=== PATIENT | male | born 1955 | race Hispanic/Latino ===

== ENCOUNTER 2017-08-10 05:06 | Emergency (ER) | payer BC, MEDICAID, OTHER ==
[2017-08-10 06:22] LABS: BASOPHILS % (AUTO) 0.6 % (0.0-5.0); EOSINOPHILS % (AUTO) 9.7 % (0.0-8.0); HEMATOCRIT 38.3 % (42-54); LYMPHOCYTES % (AUTO) 38.2 % (21.0-51.0); MEAN CORPUSCULAR HEMOGLOBIN 33.7 pg (27.0-33.0); MEAN CORPUSCULAR HGB CONC 35.5 g/dL (32.0-36.0); MEAN CORPUSCULAR VOLUME 94.9 fL (79-99); NEUTROPHILS % (AUTO) 47.5 % (40.0-77.0); PLATELET COUNT (AUTO) 199 K/uL (130-400); RED BLOOD CELL COUNT(AUTO) 4.04 MIL/uL (4.50-6.20); RED CELL DISTRIBUTION WIDTH 12.8 % (11.0-15.5); WHITE BLOOD COUNT (AUTO) 7.5 K/uL (4.8-10.8)
[2017-08-10 06:23] LABS: CREATININE 0.9 mg/dL (0.5-1.5); POTASSIUM 3.9 mmol/L (3.5-5.1)
[2017-08-10 06:39] LABS: INR 0.96 (0.85-1.15); PARTIAL THROMBOPLASTIN TIME 27.8 SEC (26.3-35.5); PROTHROMBIN TIME 10.1 SEC (9.6-11.6)
[2017-08-10 06:46] LABS: BILIRUBIN,TOTAL 0.3 mg/dL (0.2-1.0)
[2017-08-10 06:56] LABS: ALBUMIN 3.1 g/dL (3.5-5.0)
[2017-08-10 06:57] LABS: CREATINE KINASE MB 4.3 ng/mL (0.5-3.6); TOTAL PROTEIN, SERUM 5.4 g/dL (6.0-8.3)
== END 2017-08-10 08:06 | disposition home or self-care (01) ==
LOC: EDH 05:06
DX: K29.70 Gastritis, unspecified, without bleeding (principal); K21.9 Gastro-esophageal reflux disease without esophagitis; F10.129 Alcohol abuse with intoxication, unspecified; R07.89 Other chest pain; E11.9 Type 2 diabetes mellitus without complications; Z91.041 Radiographic dye allergy status; Y90.9 Presence of alcohol in blood, level not specified
CPT/HCPCS: 36415; 71045; 80053; 82550; 82553; 83605; 83690; 83874; 83880; 84484 ×2; 85025; 85610; 85730; 93005; 94761; 99285; G0480

== ENCOUNTER 2018-04-30 08:20 | Observation (INO) | payer MEDICAID ==
[~2018-04-30] VITALS: Ht 177.8 cm; Wt 96.2 kg
[2018-04-30] MEDS ORDERED: DIPHENOXYLATE HCL/ATROPINE 2.5/0.025 MG TAB PO ONE (08:53)
[2018-04-30] MEDS ORDERED: ONDANSETRON HCL 4 MG/2 ML VIAL ONE (08:53)
[2018-04-30] MEDS ORDERED: SODIUM CHLORIDE 0.9% 1000ML 1,000 ML IV ONE ×2 (08:53→11:08)
[2018-04-30 09:15] LABS: BASOPHILS % (AUTO) 0.1 % (0.0-5.0); HEMATOCRIT 40.9 % (42-54); LYMPHOCYTES % (AUTO) 2.1 % (21.0-51.0); MEAN CORPUSCULAR HEMOGLOBIN 33.3 pg (27.0-33.0); MEAN CORPUSCULAR HGB CONC 34.8 g/dL (32.0-36.0); MEAN CORPUSCULAR VOLUME 95.7 fL (79-99); MONOCYTES % (AUTO) 2.4 % (3.0-13.0); NEUTROPHILS % (AUTO) 95.4 % (40.0-77.0); PLATELET COUNT (AUTO) 126 K/uL (130-400); RED BLOOD CELL COUNT(AUTO) 4.27 MIL/uL (4.50-6.20); RED CELL DISTRIBUTION WIDTH 13.3 % (11.0-15.5); WHITE BLOOD COUNT (AUTO) 10.9 K/uL (4.8-10.8)
[2018-04-30 09:23] LABS: APPEARANCE,URINE Clear (CLEAR); BILIRUBIN,URINE Negative (NEGATIVE); COLOR,URINE Dark Yellow (YELLOW); GLUCOSE, URINE (UA) 250 mg/dL (NEGATIVE); KETONES,URINE 15 mg/dL (NEGATIVE); LEUKOCYTE ESTERASE ,URINE Trace (NEGATIVE); NITRATE,URINE Negative (NEGATIVE); OCCULT BLOOD,URINE Negative (NEGATIVE); PH,URINE 7.5 (5.0-8.0); PROTEIN,URINE POS 2+ (NEGATIVE)
[2018-04-30 09:31] LABS: INR 1.09 (0.85-1.15); PARTIAL THROMBOPLASTIN TIME 44.1 SEC (26.3-35.5); PROTHROMBIN TIME 11.4 SEC (9.6-11.6)
[2018-04-30 09:32] LABS: CARBON DIOXIDE 30 mmol/L (21-32); CHLORIDE 95 mmol/L (101-111); CREATININE 1.6 mg/dL (0.5-1.5); GLOMERULAR FILTR. RATE CALC 47 mL/min (>60); GLUCOSE,RANDOM 294 mg/dL (70-105); POTASSIUM 4.5 mmol/L (3.5-5.1); SODIUM SERUM 131 mmol/L (136-145); UREA NITROGEN, BLOOD 18 mg/dL (7-18)
[2018-04-30 09:33] LABS: BACTERIA,URINE Few /HPF (None Seen); RBC,URINE 0-1 /HPF (0-1); SQUAMOUS EPITHELIAL CELL,UR 0-2 /HPF (0-2); WBC,URINE 0-1 /HPF (0-1)
[2018-04-30] MEDS ORDERED: IBUPROFEN 600 MG TABLET ONE (09:34)
[2018-04-30 09:45] LABS: ALANINE AMINOTRANSFERASE 34 U/L (12-78); ALBUMIN 3.6 g/dL (3.5-5.0); ASPARTATE AMINOTRANSFERASE 26 U/L (10-37); BILIRUBIN,TOTAL 1.4 mg/dL (0.2-1.0); CREATINE KINASE, TOTAL 98 U/L (21-232); MYOGLOBIN 110 ng/mL (10-92); TOTAL PROTEIN, SERUM 8.1 g/dL (6.0-8.3); TROPONIN I < 0.04 ng/mL (0.00-0.06)
[2018-04-30] MEDS ORDERED: LEVOFLOXACIN 750 MG/D5W 150 ML 150 ML ONE (09:47)
[2018-04-30] MEDS ORDERED: METRONIDAZOLE 500MG/100ML BAG 100 ML ONE (11:08)
[2018-04-30] MEDS: SODIUM CHLORIDE 0.9% 1000ML 1,000 ML IV SCH ×2 (12:21→22:02)
[2018-04-30] MEDS: LEVOFLOXACIN 500 MG/D5W 100 ML 100 ML IV SCH (12:30)
[2018-04-30] MEDS ORDERED: ACETAMINOPHEN 650 MG SUPPOSITORY RC PRN (12:30)
[2018-04-30] MEDS ORDERED: ONDANSETRON HCL MDV 20ML 2 MG/ML VIAL IVP PRN (12:30)
[2018-04-30] MEDS: METRONIDAZOLE 500MG/100ML BAG 100 ML IV SCH ×2 (12:30→22:02)
[2018-04-30 17:55] VITALS: BP 144/82
[2018-04-30] MEDS ORDERED: METF-446 PO (18:33)
[2018-04-30] MEDS ORDERED: CETI10CA5 PO (18:33)
[2018-04-30 19:50] VITALS: BP 141/69
[2018-04-30] MEDS: FAMOTIDINE/PF 20 MG/2 ML VIAL IV SCH (22:03)
[2018-04-30 23:20] VITALS: BP 139/77
[2018-05-01] MEDS ORDERED: GLUCAGON 1MG KIT 1 MG ML IM PRN (01:00)
[2018-05-01] MEDS ORDERED: DEXTROSE 50%-WATER 50 ML DISP.SYRIN IV PRN (01:00)
[2018-05-01 03:40] VITALS: BP 136/77
[2018-05-01] MEDS: METRONIDAZOLE 500MG/100ML BAG 100 ML IV SCH ×2 (05:20→12:06)
[2018-05-01 05:29] LABS: HEMATOCRIT 35.1 % (42-54); MEAN CORPUSCULAR HEMOGLOBIN 33.5 pg (27.0-33.0); MEAN CORPUSCULAR HGB CONC 35.2 g/dL (32.0-36.0); MEAN CORPUSCULAR VOLUME 95.4 fL (79-99); NUCLEATED RED BLOOD CELLS 0.1 % (0.0-0.19); PLATELET COUNT (AUTO) 137 K/uL (130-400); RED BLOOD CELL COUNT(AUTO) 3.68 MIL/uL (4.50-6.20); RED CELL DISTRIBUTION WIDTH 13.5 % (11.0-15.5); WHITE BLOOD COUNT (AUTO) 5.1 K/uL (4.8-10.8)
[2018-05-01 05:56] LABS: CREATININE 1.2 mg/dL (0.5-1.5); POTASSIUM 4.1 mmol/L (3.5-5.1)
[2018-05-01] MEDS: INSULIN HUMULIN R 100 UNIT/ML 3ML SQ SCH ×2 (06:00→11:42)
[2018-05-01 07:30] VITALS: BP 136/72
[2018-05-01] MEDS: FAMOTIDINE/PF 20 MG/2 ML VIAL IV SCH (08:41)
[2018-05-01] MEDS ORDERED: ENOXAPARIN SODIUM 40 MG/0.4 ML SYRINGE SQ SCH (09:00)
[2018-05-01 11:00] VITALS: BP 142/74
[2018-05-01] MEDS: LEVOFLOXACIN 500 MG/D5W 100 ML 100 ML IV SCH (13:21)
[2018-05-01 16:00] VITALS: BP 133/67
[2018-05-01] MEDS ORDERED: INSULIN HUMULIN R 100 UNIT/ML 3ML SQ SCH (16:30)
== END 2018-05-01 18:40 | disposition home or self-care (01) ==
LOC: EDH 08:20 → EDHIP 08:21 → 4CH 18:02
PROVIDERS: ADMIT Hospitalist; ATTEND Hospitalist
DX: K52.9 Noninfective gastroenteritis and colitis, unspecified (principal); A41.9 Sepsis, unspecified organism; E11.9 Type 2 diabetes mellitus without complications; E86.9 Volume depletion, unspecified; E87.1 Hypo-osmolality and hyponatremia
CPT/HCPCS: 36415 ×2; 71045; 80048; 80053; 81001; 82550; 82948 ×5; 83605 ×2; 83874; 84484; 85025; 85027; 85610; 85730; 87040 ×2; 87046; 87088; 87177; 87804 ×2; 93005; 96365; 96366; 96367; 96372; 96375; 96376; 99285; G0378 ×34; J1650; J1956 ×2; J2405; J3490 ×6; J7030 ×3; Q2035 ×2; Q2038

== ENCOUNTER 2021-02-03 01:32 | Observation (INO) | payer MEDICARE ==
[~2021-02-03] VITALS: Ht 208.3 cm; Wt 75.4 kg
[2021-02-03] VITALS (8 sets, daily range): BP systolic 143–176; BP diastolic 67–94
[~2021-02-03 01:32] MED LIST: CETI10CA5 PO; METF-446 PO
[2021-02-03 02:38] LABS: BASOPHILS % (AUTO) 0.1 % (0.0-5.0); EOSINOPHILS % (AUTO) 0.3 % (0.0-8.0); HEMATOCRIT 32.6 % (42-54); LYMPHOCYTES % (AUTO) 6.9 % (21.0-51.0); MEAN CORPUSCULAR HEMOGLOBIN 33.2 pg (27.0-33.0); MEAN CORPUSCULAR HGB CONC 35.9 g/dL (32.0-36.0); MEAN CORPUSCULAR VOLUME 92.6 fL (79-99); MONOCYTES % (AUTO) 3.8 % (3.0-13.0); NEUTROPHILS % (AUTO) 88.7 % (40.0-77.0); PLATELET COUNT (AUTO) 142 K/uL (130-400); RED BLOOD CELL COUNT(AUTO) 3.52 MIL/uL (4.50-6.20); RED CELL DISTRIBUTION WIDTH 13.2 % (11.0-15.5); WHITE BLOOD COUNT (AUTO) 11.1 K/uL (4.8-10.8)
[2021-02-03 02:43] LABS: INR 1.16 (0.85-1.15); PROTHROMBIN TIME 12.5 SEC (9.6-11.6)
[2021-02-03 02:45] LABS: PARTIAL THROMBOPLASTIN TIME 25.9 SEC (26.3-35.5)
[2021-02-03 02:46] LABS: ALBUMIN 3.7 g/dL (3.5-5.0); BILIRUBIN,TOTAL 0.7 mg/dL (0.2-1.0); POTASSIUM 3.7 mmol/L (3.5-5.1); TOTAL PROTEIN, SERUM 6.8 g/dL (6.0-8.3)
[2021-02-03] MEDS ORDERED: ONDANSETRON 4MG INJ ONE (03:17)
[2021-02-03] MEDS ORDERED: 0.9%NACL 1000ML 1,000 ML IV ONE (03:17)
[2021-02-03] MEDS ORDERED: PROCHLORPERAZINE 10MG/2ML INJ ONE (03:22)
[2021-02-03] MEDS ORDERED: OCTREOTIDE ACETATE 1,250 MCG in 0.9% NACL 250ML 250 ML IV STA (03:23)
[2021-02-03] MEDS ORDERED: ONDANSETRON 4MG INJ IVP ONE (03:30)
[2021-02-03] MEDS ORDERED: METOCLOPRAMIDE 10 MG/2 ML VIAL IVP ONE (03:30)
[2021-02-03] MEDS ORDERED: OCTREOTIDE ACETATE 100 MCG/ML AMP IV SCH (03:30)
[2021-02-03] MEDS ORDERED: 0.9%NACL 1000ML 500 ML IV ONE (03:30)
[2021-02-03] MEDS: PROCHLORPERAZINE 10MG/2ML INJ IV ONE ×2 (03:30→04:43)
[2021-02-03] MEDS ORDERED: PANTOPRAZOLE 40 MG/VIAL IV SCH (03:30)
[2021-02-03] MEDS: 0.9%NACL 1000ML 1,000 ML IV SCH ×4 (03:30→23:39)
[2021-02-03] MEDS ORDERED: 0.9%NACL 100ML 200 ML ONE (04:11)
[2021-02-03] MEDS: PANTOPRAZOLE 40MG INJ 80 MG in 0.9%NACL 100ML 100 ML IVP SCH ×2 (04:44→21:59)
[2021-02-03] MEDS ORDERED: LACTATED RINGERS 1000ML 1,000 ML IV ONE (05:00)
[2021-02-03] MEDS ORDERED: ONDANSETRON 4MG INJ IVP PRN (08:00)
[2021-02-03 08:07] LABS: BASOPHILS % (AUTO) 0.1 % (0.0-5.0); EOSINOPHILS % (AUTO) 1.8 % (0.0-8.0); HEMATOCRIT 30.1 % (42-54); LYMPHOCYTES % (AUTO) 6.8 % (21.0-51.0); MEAN CORPUSCULAR HEMOGLOBIN 32.7 pg (27.0-33.0); MEAN CORPUSCULAR HGB CONC 35.2 g/dL (32.0-36.0); MEAN CORPUSCULAR VOLUME 92.9 fL (79-99); MONOCYTES % (AUTO) 3.5 % (3.0-13.0); NEUTROPHILS % (AUTO) 87.5 % (40.0-77.0); PLATELET COUNT (AUTO) 131 K/uL (130-400); RED BLOOD CELL COUNT(AUTO) 3.24 MIL/uL (4.50-6.20); RED CELL DISTRIBUTION WIDTH 12.9 % (11.0-15.5)
[2021-02-03 08:14] LABS: CREATININE 0.9 mg/dL (0.5-1.5)
[2021-02-03 08:18] LABS: ALBUMIN 3.2 g/dL (3.5-5.0); BILIRUBIN,TOTAL 0.6 mg/dL (0.2-1.0); MAGNESIUM 1.3 mg/dL (1.80-2.40)
[2021-02-03 08:25] LABS: INR 1.2 (0.85-1.15); PROTHROMBIN TIME 12.9 SEC (9.6-11.6)
[2021-02-03 08:26] LABS: PARTIAL THROMBOPLASTIN TIME 27.9 SEC (26.3-35.5)
[2021-02-03] MEDS ORDERED: MAGNESIUM 2GM PREMIX 50ML 50 ML IV ONE (11:08)
[2021-02-03] MEDS: METOCLOPRAMIDE 10 MG/2 ML VIAL IVP SCH ×2 (11:30→16:32)
[2021-02-03] MEDS ORDERED: TAMS-1 PO (12:35)
[2021-02-03] MEDS ORDERED: ONDA4TAB4 PO (12:35)
[2021-02-03] MEDS ORDERED: ASCO500C6 PO (12:35)
[2021-02-03] MEDS ORDERED: HYDR-3422 PO (12:35)
[2021-02-03] MEDS ORDERED: ATOR10TA69 PO (12:35)
[2021-02-03] MEDS ORDERED: [UNRECOGNIZED DRUG - CODE] PO (12:35)
[2021-02-03] MEDS ORDERED: HYDR-4068 PO (12:35)
[2021-02-03] MEDS ORDERED: MAGNESIUM 2GM PREMIX 50ML 50 ML IV PRN (13:30)
[2021-02-03 14:13] LABS: BASOPHILS % (AUTO) 0.1 % (0.0-5.0); EOSINOPHILS % (AUTO) 0.5 % (0.0-8.0); LYMPHOCYTES % (AUTO) 12.6 % (21.0-51.0); MEAN CORPUSCULAR HEMOGLOBIN 32.6 pg (27.0-33.0); MEAN CORPUSCULAR HGB CONC 34.6 g/dL (32.0-36.0); MEAN CORPUSCULAR VOLUME 94.3 fL (79-99); NEUTROPHILS % (AUTO) 80.4 % (40.0-77.0); PLATELET COUNT (AUTO) 136 K/uL (130-400); RED BLOOD CELL COUNT(AUTO) 3.71 MIL/uL (4.50-6.20); RED CELL DISTRIBUTION WIDTH 13.1 % (11.0-15.5); WHITE BLOOD COUNT (AUTO) 8.3 K/uL (4.8-10.8)
[2021-02-03 14:17] LABS: CREATININE 0.9 mg/dL (0.5-1.5); POTASSIUM 4.2 mmol/L (3.5-5.1)
[2021-02-03] MEDS ORDERED: MAGNESIUM 2GM PREMIX 50ML 50 ML IV SCH (14:30)
[2021-02-03] MEDS ORDERED: PANTOPRAZOLE 40 MG/VIAL ONE (15:02)
[2021-02-03 20:41] LABS: BASOPHILS % (AUTO) 0.1 % (0.0-5.0); EOSINOPHILS % (AUTO) 0.3 % (0.0-8.0); HEMATOCRIT 32.1 % (42-54); LYMPHOCYTES % (AUTO) 10.6 % (21.0-51.0); MEAN CORPUSCULAR HEMOGLOBIN 33.6 pg (27.0-33.0); MEAN CORPUSCULAR HGB CONC 34.9 g/dL (32.0-36.0); MEAN CORPUSCULAR VOLUME 96.4 fL (79-99); MONOCYTES % (AUTO) 7.3 % (3.0-13.0); NEUTROPHILS % (AUTO) 81.3 % (40.0-77.0); PLATELET COUNT (AUTO) 119 K/uL (130-400); RED BLOOD CELL COUNT(AUTO) 3.33 MIL/uL (4.50-6.20); RED CELL DISTRIBUTION WIDTH 13.2 % (11.0-15.5); WHITE BLOOD COUNT (AUTO) 9.2 K/uL (4.8-10.8)
[2021-02-03] MEDS ORDERED: ATORVASTATIN 10 MG TABLET PO SCH (21:00)
[2021-02-03] MEDS: TAMSULOSIN HCL 0.4 MG CAP.ER.24H PO SCH (21:31)
[2021-02-03] MEDS: ATORVASTATIN 10 MG TABLET PO SCH (21:31)
[2021-02-04] VITALS (21 sets, daily range): BP systolic 109–172; BP diastolic 67–92
[2021-02-04 05:16] LABS: HEMATOCRIT 31.9 % (42-54); MEAN CORPUSCULAR HEMOGLOBIN 32.8 pg (27.0-33.0); MEAN CORPUSCULAR HGB CONC 34.5 g/dL (32.0-36.0); MEAN CORPUSCULAR VOLUME 95.2 fL (79-99); RED BLOOD CELL COUNT(AUTO) 3.35 MIL/uL (4.50-6.20); RED CELL DISTRIBUTION WIDTH 13.2 % (11.0-15.5)
[2021-02-04 05:51] LABS: CREATININE 0.9 mg/dL (0.5-1.5); POTASSIUM 3.5 mmol/L (3.5-5.1)
[2021-02-04] MEDS: 0.9%NACL 1000ML 1,000 ML IV SCH (06:10)
[2021-02-04] MEDS: TAMSULOSIN HCL 0.4 MG CAP.ER.24H PO SCH ×2 (09:00→21:00)
[2021-02-04] MEDS: LENVATINIB MESYLATE 20 MG PO SCH (09:00)
[2021-02-04 09:08] LABS: BASOPHILS % (AUTO) 0.2 % (0.0-5.0); EOSINOPHILS % (AUTO) 1.9 % (0.0-8.0); HEMATOCRIT 31.4 % (42-54); LYMPHOCYTES % (AUTO) 16.2 % (21.0-51.0); MEAN CORPUSCULAR HEMOGLOBIN 32.7 pg (27.0-33.0); MEAN CORPUSCULAR HGB CONC 34.4 g/dL (32.0-36.0); MEAN CORPUSCULAR VOLUME 95.2 fL (79-99); MONOCYTES % (AUTO) 7.1 % (3.0-13.0); NEUTROPHILS % (AUTO) 74.3 % (40.0-77.0); PLATELET COUNT (AUTO) 116 K/uL (130-400); RED CELL DISTRIBUTION WIDTH 13.2 % (11.0-15.5); WHITE BLOOD COUNT (AUTO) 5.9 K/uL (4.8-10.8)
[2021-02-04] MEDS: METOCLOPRAMIDE 10 MG/2 ML VIAL IVP SCH ×3 (10:23→20:33)
[2021-02-04] MEDS ORDERED: PROPOFOL 10 MG/ML 20ML VIAL IV ONE (11:50)
[2021-02-04 13:58] LABS: BASOPHILS % (AUTO) 0.3 % (0.0-5.0); EOSINOPHILS % (AUTO) 1.5 % (0.0-8.0); HEMATOCRIT 33.8 % (42-54); LYMPHOCYTES % (AUTO) 13.5 % (21.0-51.0); MEAN CORPUSCULAR HEMOGLOBIN 33.2 pg (27.0-33.0); MEAN CORPUSCULAR VOLUME 97.7 fL (79-99); MONOCYTES % (AUTO) 6.6 % (3.0-13.0); NEUTROPHILS % (AUTO) 77.7 % (40.0-77.0); PLATELET COUNT (AUTO) 119 K/uL (130-400); RED BLOOD CELL COUNT(AUTO) 3.46 MIL/uL (4.50-6.20); RED CELL DISTRIBUTION WIDTH 13.3 % (11.0-15.5); WHITE BLOOD COUNT (AUTO) 7.8 K/uL (4.8-10.8)
[2021-02-04] MEDS ORDERED: PANT40TA PO (15:22)
[2021-02-04] MEDS ORDERED: AMLO5TAB5 PO (15:22)
[2021-02-04] MEDS ORDERED: HYDRALAZINE 20MG/ML VIAL IV PRN (19:00)
[2021-02-04 20:50] LABS: BASOPHILS % (AUTO) 0.2 % (0.0-5.0); EOSINOPHILS % (AUTO) 1.3 % (0.0-8.0); HEMATOCRIT 37.5 % (42-54); LYMPHOCYTES % (AUTO) 12.1 % (21.0-51.0); MEAN CORPUSCULAR HGB CONC 32.5 g/dL (32.0-36.0); MEAN CORPUSCULAR VOLUME 101.4 fL (79-99); MONOCYTES % (AUTO) 5.8 % (3.0-13.0); NEUTROPHILS % (AUTO) 80.2 % (40.0-77.0); PLATELET COUNT (AUTO) 134 K/uL (130-400); RED CELL DISTRIBUTION WIDTH 13.3 % (11.0-15.5); WHITE BLOOD COUNT (AUTO) 8.5 K/uL (4.8-10.8)
[2021-02-04] MEDS: ATORVASTATIN 10 MG TABLET PO SCH (21:00)
[2021-02-04] MEDS ORDERED: PANTOPRAZOLE 40 MG TAB DR PO SCH (21:00)
[2021-02-05 00:06] VITALS: BP 171/73
[2021-02-05 04:12] VITALS: BP 153/85
[2021-02-05] MEDS: 0.9%NACL 1000ML 1,000 ML IV SCH (06:15)
[2021-02-05] MEDS: METOCLOPRAMIDE 10 MG/2 ML VIAL IVP SCH ×2 (07:30→10:57)
[2021-02-05 08:00] VITALS: BP 157/80
[2021-02-05] MEDS ORDERED: PANTOPRAZOLE 40 MG/VIAL IVP SCH (09:00)
[2021-02-05] MEDS: LENVATINIB MESYLATE 20 MG PO SCH (09:00)
[2021-02-05 09:06] LABS: BASOPHILS % (AUTO) 0.2 % (0.0-5.0); EOSINOPHILS % (AUTO) 1.9 % (0.0-8.0); HEMATOCRIT 35.8 % (42-54); LYMPHOCYTES % (AUTO) 13.3 % (21.0-51.0); MEAN CORPUSCULAR HGB CONC 34.4 g/dL (32.0-36.0); MONOCYTES % (AUTO) 5.5 % (3.0-13.0); NEUTROPHILS % (AUTO) 78.7 % (40.0-77.0); PLATELET COUNT (AUTO) 163 K/uL (130-400); RED BLOOD CELL COUNT(AUTO) 3.73 MIL/uL (4.50-6.20); RED CELL DISTRIBUTION WIDTH 13.1 % (11.0-15.5); WHITE BLOOD COUNT (AUTO) 11.9 K/uL (4.8-10.8)
[2021-02-05] MEDS ORDERED: AMLODIPINE 5 MG TAB PO SCH (10:00)
[2021-02-05] MEDS: TAMSULOSIN HCL 0.4 MG CAP.ER.24H PO SCH (10:55)
[2021-02-05 12:00] VITALS: BP 115/64
== END 2021-02-05 15:00 | disposition home or self-care (01) ==
LOC: EDH 01:32 → EDHIP 05:25 → 3BH 11:55
PROVIDERS: ADMIT Internal Medicine Critical Care Medicine; ATTEND Internal Medicine Critical Care Medicine
DX: K92.0 Hematemesis (principal); R06.6 Hiccough; E86.0 Dehydration; E87.1 Hypo-osmolality and hyponatremia; E11.9 Type 2 diabetes mellitus without complications; R53.81 Other malaise; R53.1 Weakness; I85.11 Secondary esophageal varices with bleeding; C78.7 Secondary malignant neoplasm of liver and intrahepatic bile duct; E78.00 Pure hypercholesterolemia, unspecified; I10 Essential (primary) hypertension; K21.00 Gastro-esophageal reflux disease with esophagitis, without bleeding; K74.60 Unspecified cirrhosis of liver; Z85.05 Personal history of malignant neoplasm of liver; Z68.1 Body mass index [BMI] 19.9 or less, adult; Z85.89 Personal history of malignant neoplasm of other organs and systems; Z79.84 Long term (current) use of oral hypoglycemic drugs
CPT/HCPCS: 36415 ×3; 43235; 71045; 80048; 80053 ×2; 83735; 83880; 84484; 85025 ×8; 85027; 85610 ×2; 85730 ×2; 86850; 86900; 86901; 92610; 93005; 96361 ×2; 96365; 96366 ×2; 96367; 96368; 96375; 96376 ×4; 97039 ×2; 97161; 99285; A4606; A4620; A4657; C9113 ×6; G0378 ×55; G8978; G8979; G8980; G8981; G8982; G8983; J0780; J2354 ×2; J2405 ×2; J2704; J2765 ×5; J3475; J7030; J7050

== ENCOUNTER 2021-04-17 17:26 | Inpatient (IN) | payer MEDICARE ==
[~2021-04-17] VITALS: Ht 177.8 cm; Wt 72.0 kg
[~2021-04-17 17:26] MED LIST changes: +AMLO5TAB5 PO; +ASCO500C6 PO; +ATOR10TA69 PO; -CETI10CA5 PO; +HYDR-3422 PO; +HYDR-4068 PO; +ONDA4TAB4 PO; +PANT40TA PO; +TAMS-1 PO; +[UNRECOGNIZED DRUG - CODE] PO
[2021-04-17] MEDS ORDERED: LACTATED RINGERS 1000ML 1,000 ML IV ONE (18:00)
[2021-04-17 18:23] LABS: BASOPHILS % (AUTO) 0.3 % (0.0-5.0); EOSINOPHILS % (AUTO) 4.1 % (0.0-8.0); LYMPHOCYTES % (AUTO) 12.6 % (21.0-51.0); MEAN CORPUSCULAR HEMOGLOBIN 31.1 pg (27.0-33.0); MEAN CORPUSCULAR HGB CONC 34.4 g/dL (32.0-36.0); MEAN CORPUSCULAR VOLUME 90.4 fL (79-99); MONOCYTES % (AUTO) 5.3 % (3.0-13.0); NEUTROPHILS % (AUTO) 77.3 % (40.0-77.0); PLATELET COUNT (AUTO) 115 K/uL (130-400); RED BLOOD CELL COUNT(AUTO) 3.76 MIL/uL (4.50-6.20); RED CELL DISTRIBUTION WIDTH 13.7 % (11.0-15.5)
[2021-04-17 18:40] LABS: CREATININE 1.3 mg/dL (0.5-1.5); POTASSIUM 4.3 mmol/L (3.5-5.1)
[2021-04-17 18:44] LABS: BILIRUBIN,TOTAL 0.4 mg/dL (0.2-1.0); TOTAL PROTEIN, SERUM 6.5 g/dL (6.0-8.3)
[2021-04-17] MEDS ORDERED: DEXAMETHASONE SOD PHOSPHATE 4 MG/ML 1ML VIAL IVP STA (19:05)
[2021-04-17] MEDS ORDERED: HYDRALAZINE 20MG/ML VIAL IM PRN (19:30)
[2021-04-17] MEDS ORDERED: ACETAMINOPHEN 325 MG TAB PO PRN ×2 (19:30)
[2021-04-17] MEDS: 0.9%NACL 1000ML 1,000 ML IV SCH (19:30)
[2021-04-17] MEDS ORDERED: ZOLPIDEM TARTRATE 5 MG TAB PO PRN (19:30)
[2021-04-17] MEDS ORDERED: IPRATROPIUM/ALBUTEROL SULFATE 3 ML SOLUTION IH PRN (19:30)
[2021-04-17] MEDS ORDERED: GUAIFENESIN-DM 200/20 MG 10 ML PO PRN (19:30)
[2021-04-17] MEDS ORDERED: MORPHINE 4 MG SYG IV PRN (19:30)
[2021-04-17] MEDS ORDERED: NITROGLYCERIN 0.4 MG SL TAB SL PRN (19:30)
[2021-04-17] MEDS ORDERED: DEXAMETHASONE SOD PHOSPHATE 4 MG/ML 1ML VIAL ONE (22:31)
[2021-04-17] MEDS: ONDANSETRON 4MG INJ IV PRN (22:42)
[2021-04-18 02:22] LABS: APPEARANCE,URINE Clear (CLEAR); BILIRUBIN,URINE Negative (NEGATIVE); COLOR,URINE Yellow (YELLOW); GLUCOSE, URINE (UA) Negative (NEGATIVE); KETONES,URINE Trace mg/dL (NEGATIVE); LEUKOCYTE ESTERASE ,URINE Negative (NEGATIVE); NITRATE,URINE Negative (NEGATIVE); OCCULT BLOOD,URINE Negative (NEGATIVE); PH,URINE 6.5 (5.0-8.0); PROTEIN,URINE Trace mg/dL (NEGATIVE)
[2021-04-18 04:00] VITALS: BP 129/80
[2021-04-18] MEDS ORDERED: IBUP-2077 PO (04:11)
[2021-04-18] MEDS ORDERED: PROC10TA13 PO (04:11)
[2021-04-18] MEDS ORDERED: ESOM40CA54 PO (04:11)
[2021-04-18] MEDS: 0.9%NACL 1000ML 1,000 ML IV SCH ×3 (05:30→20:05)
[2021-04-18 08:00] VITALS: BP 167/77
[2021-04-18] MEDS: ENOXAPARIN SODIUM 30 MG/0.3 ML SQ SCH (09:14)
[2021-04-18] MEDS: FAMOTIDINE 20MG VIAL IV SCH (09:14)
[2021-04-18 12:00] VITALS: BP 150/78
[2021-04-18 16:00] VITALS: BP 134/80
[2021-04-18 20:09] VITALS: BP 145/92
[2021-04-18 23:26] VITALS: BP 133/75
[2021-04-19 04:25] VITALS: BP 155/89
[2021-04-19] MEDS ORDERED: DEXTROSE 50%-WATER 50 ML DISP.SYRIN IV ONE (05:47)
[2021-04-19] MEDS ORDERED: DEXTROSE 5 % AND 0.9 % NACL 1,000 ML IV ONE (05:47)
[2021-04-19] MEDS ORDERED: DEXTROSE 50%-WATER 50 ML DISP.SYRIN IV PRN (06:00)
[2021-04-19] MEDS ORDERED: GLUCAGON 1MG KIT 1 MG ML IM PRN (06:00)
[2021-04-19] MEDS ORDERED: 0.9%NACL 1000ML 1,000 ML IV SCH (06:00)
[2021-04-19] MEDS: DEXTROSE 5 % AND 0.9 % NACL 1,000 ML IV SCH ×3 (06:00→21:22)
[2021-04-19 07:53] VITALS: BP 149/77
[2021-04-19] MEDS: FAMOTIDINE 20MG VIAL IV SCH (09:01)
[2021-04-19] MEDS: ENOXAPARIN SODIUM 30 MG/0.3 ML SQ SCH (09:01)
[2021-04-19 11:35] VITALS: BP 150/80
[2021-04-19 12:20] LABS: CREATININE 0.9 mg/dL (0.5-1.5); POTASSIUM 4.4 mmol/L (3.5-5.1)
[2021-04-19 16:00] VITALS: BP 158/86
[2021-04-19 20:53] VITALS: BP 161/81
[2021-04-19] MEDS: TAMSULOSIN HCL 0.4 MG CAP.ER.24H PO SCH (20:57)
[2021-04-19] MEDS: ATORVASTATIN 10 MG TABLET PO SCH (20:57)
[2021-04-20 00:51] VITALS: BP 145/76
[2021-04-20] MEDS: DEXTROSE 5 % AND 0.9 % NACL 1,000 ML IV SCH ×2 (04:09→09:09)
[2021-04-20 04:37] LABS: HEMATOCRIT 32.9 % (42-54); MEAN CORPUSCULAR HEMOGLOBIN 30.9 pg (27.0-33.0); MEAN CORPUSCULAR HGB CONC 33.1 g/dL (32.0-36.0); MEAN CORPUSCULAR VOLUME 93.2 fL (79-99); RED BLOOD CELL COUNT(AUTO) 3.53 MIL/uL (4.50-6.20); RED CELL DISTRIBUTION WIDTH 13.7 % (11.0-15.5); WHITE BLOOD COUNT (AUTO) 5.6 K/uL (4.8-10.8)
[2021-04-20 04:56] LABS: CREATININE 0.8 mg/dL (0.5-1.5); MAGNESIUM 1.2 mg/dL (1.80-2.40); POTASSIUM 3.3 mmol/L (3.5-5.1)
[2021-04-20 05:07] VITALS: BP 137/88
[2021-04-20 07:30] VITALS: BP 160/76
[2021-04-20] MEDS: TAMSULOSIN HCL 0.4 MG CAP.ER.24H PO SCH ×2 (09:00→20:55)
[2021-04-20] MEDS: LENVATINIB PO SCH (09:00)
[2021-04-20] MEDS: ENOXAPARIN SODIUM 30 MG/0.3 ML SQ SCH (09:08)
[2021-04-20] MEDS: FAMOTIDINE 20MG VIAL IV SCH (09:08)
[2021-04-20] MEDS ORDERED: POTASSIUM PHOS 15 mMOL+NS250ML 250 ML IV PRN (09:30)
[2021-04-20] MEDS: MAGNESIUM 2GM PREMIX 50ML 50 ML IV PRN (11:04)
[2021-04-20 11:19] VITALS: BP 99/64
[2021-04-20] MEDS ORDERED: LIDOCAINE HCL-MPF 1% 2ML VIAL IV PRN (14:30)
[2021-04-20] MEDS ORDERED: POTASSIUM CHLORIDE 20MEQ/100ML 100 ML IV ONE (14:35)
[2021-04-20 15:41] VITALS: BP 144/81
[2021-04-20] MEDS: POTASSIUM CHLORIDE 20MEQ/100ML 100 ML IV PRN (17:01)
[2021-04-20 20:00] VITALS: BP 149/86
[2021-04-20] MEDS: ATORVASTATIN 10 MG TABLET PO SCH (20:55)
[2021-04-21] VITALS (7 sets, daily range): BP systolic 136–145; BP diastolic 63–90
[2021-04-21] MEDS: DEXTROSE 5 % AND 0.9 % NACL 1,000 ML IV SCH ×5 (01:00→20:08)
[2021-04-21 03:51] LABS: HEMATOCRIT 32.2 % (42-54); MEAN CORPUSCULAR HEMOGLOBIN 31.1 pg (27.0-33.0); MEAN CORPUSCULAR HGB CONC 33.9 g/dL (32.0-36.0); RED BLOOD CELL COUNT(AUTO) 3.5 MIL/uL (4.50-6.20); WHITE BLOOD COUNT (AUTO) 4.8 K/uL (4.8-10.8)
[2021-04-21 04:14] LABS: ALBUMIN 2.6 g/dL (3.5-5.0); BILIRUBIN,TOTAL 0.3 mg/dL (0.2-1.0); CREATININE 0.9 mg/dL (0.5-1.5); POTASSIUM 3.8 mmol/L (3.5-5.1); TOTAL PROTEIN, SERUM 5.6 g/dL (6.0-8.3)
[2021-04-21] MEDS: LENVATINIB PO SCH (09:00)
[2021-04-21] MEDS: TAMSULOSIN HCL 0.4 MG CAP.ER.24H PO SCH ×2 (09:00→20:09)
[2021-04-21] MEDS: FAMOTIDINE 20MG VIAL IV SCH (09:06)
[2021-04-21] MEDS: ENOXAPARIN SODIUM 30 MG/0.3 ML SQ SCH (09:07)
[2021-04-21] MEDS: ATORVASTATIN 10 MG TABLET PO SCH (20:09)
[2021-04-22 04:28] VITALS: BP 157/79
[2021-04-22] MEDS: DEXTROSE 5 % AND 0.9 % NACL 1,000 ML IV SCH (05:27)
[2021-04-22 08:18] VITALS: BP 145/80
[2021-04-22] MEDS: LENVATINIB PO SCH (08:23)
[2021-04-22] MEDS: TAMSULOSIN HCL 0.4 MG CAP.ER.24H PO SCH ×2 (08:23→19:42)
[2021-04-22] MEDS: ENOXAPARIN SODIUM 30 MG/0.3 ML SQ SCH (09:13)
[2021-04-22] MEDS: FAMOTIDINE 20MG VIAL IV SCH (09:13)
[2021-04-22] MEDS ORDERED: LACTULOSE 20 GM/30 ML UDCUP PO PRN (10:30)
[2021-04-22 11:54] VITALS: BP 122/67
[2021-04-22 16:47] VITALS: BP 171/80
[2021-04-22] MEDS: ATORVASTATIN 10 MG TABLET PO SCH (19:43)
[2021-04-22 19:57] VITALS: BP 155/79
[2021-04-22 23:24] VITALS: BP 155/83
[2021-04-23] VITALS (21 sets, daily range): BP systolic 126–170; BP diastolic 74–87
[2021-04-23 04:00] LABS: HEMATOCRIT 31.9 % (42-54); MEAN CORPUSCULAR HEMOGLOBIN 30.9 pg (27.0-33.0); MEAN CORPUSCULAR HGB CONC 33.9 g/dL (32.0-36.0); MEAN CORPUSCULAR VOLUME 91.1 fL (79-99); RED BLOOD CELL COUNT(AUTO) 3.5 MIL/uL (4.50-6.20); WHITE BLOOD COUNT (AUTO) 3.7 K/uL (4.8-10.8)
[2021-04-23 04:12] LABS: INR 1.62 (0.85-1.15); PROTHROMBIN TIME 16.9 SEC (9.6-11.6)
[2021-04-23 04:13] LABS: PARTIAL THROMBOPLASTIN TIME 36.3 SEC (26.3-35.5)
[2021-04-23 04:15] LABS: CREATININE 0.8 mg/dL (0.5-1.5); POTASSIUM 3.1 mmol/L (3.5-5.1)
[2021-04-23] MEDS: TAMSULOSIN HCL 0.4 MG CAP.ER.24H PO SCH ×2 (08:33→21:00)
[2021-04-23] MEDS: LENVATINIB PO SCH (08:33)
[2021-04-23] MEDS: ENOXAPARIN SODIUM 30 MG/0.3 ML SQ SCH (08:34)
[2021-04-23] MEDS: FAMOTIDINE 20MG VIAL IV SCH (08:40)
[2021-04-23] MEDS: DEXTROSE 5 % AND 0.9 % NACL 1,000 ML IV SCH (11:13)
[2021-04-23] MEDS ORDERED: PROPOFOL 10 MG/ML 20ML VIAL IV ONE ×2 (11:30→11:36)
[2021-04-23] MEDS ORDERED: GLYCOPYRROLATE 1 MG/5 ML SYRINGE ONE (11:31)
[2021-04-23] MEDS ORDERED: LIDOCAINE PF 100MG/5ML (2%) SYRINGE 5ML ONE (11:32)
[2021-04-23] MEDS ORDERED: CEFAZOLIN SODIUM 1 GM VIAL ONE (11:33)
[2021-04-23] MEDS ORDERED: LORAZEPAM 2 MG/ML 1 ML VIAL IVP PRN (15:30)
[2021-04-23] MEDS ORDERED: BISACODYL 10 MG SUPP.RECT RC PRN (15:30)
[2021-04-23] MEDS ORDERED: CLINIMIX-E 4.25AA/D5+LYT1000ML 1,000 ML IV ONE (18:30)
[2021-04-23] MEDS: ATORVASTATIN 10 MG TABLET PO SCH (21:00)
[2021-04-24 03:51] VITALS: BP 161/83
[2021-04-24 05:08] LABS: CREATININE 0.8 mg/dL (0.5-1.5); MAGNESIUM 1.4 mg/dL (1.80-2.40)
[2021-04-24 05:10] LABS: POTASSIUM 2.9 mmol/L (3.5-5.1)
[2021-04-24] MEDS: POTASSIUM CHLORIDE 20MEQ/100ML 100 ML IV PRN ×3 (05:33→11:30)
[2021-04-24 07:58] VITALS: BP 148/72
[2021-04-24] MEDS: TAMSULOSIN HCL 0.4 MG CAP.ER.24H PO SCH ×2 (08:01→21:00)
[2021-04-24] MEDS: LENVATINIB PO SCH (08:01)
[2021-04-24] MEDS: MAGNESIUM 2GM PREMIX 50ML 50 ML IV PRN (09:04)
[2021-04-24] MEDS: ENOXAPARIN SODIUM 30 MG/0.3 ML SQ SCH (09:04)
[2021-04-24] MEDS: FAMOTIDINE 20MG VIAL IV SCH (09:04)
[2021-04-24 11:42] VITALS: BP 110/69
[2021-04-24 15:57] VITALS: BP 155/85
[2021-04-24 19:47] VITALS: BP 159/72
[2021-04-24] MEDS: ATORVASTATIN 10 MG TABLET PO SCH (21:00)
[2021-04-24 21:08] LABS: MAGNESIUM 1.9 mg/dL (1.80-2.40); POTASSIUM 3.3 mmol/L (3.5-5.1)
[2021-04-24] MEDS ORDERED: CLINIMIX-E4.25%AA/D5+LYT2000ML 2,000 ML IV ONE (22:00)
[2021-04-25] VITALS (7 sets, daily range): BP systolic 115–153; BP diastolic 67–85
[2021-04-25] MEDS: POTASSIUM CHLORIDE 20MEQ/100ML 100 ML IV PRN ×2 (01:20→06:46)
[2021-04-25] MEDS: MAGNESIUM 2GM PREMIX 50ML 50 ML IV PRN (01:21)
[2021-04-25 06:10] LABS: CREATININE 0.8 mg/dL (0.5-1.5); POTASSIUM 3.3 mmol/L (3.5-5.1)
[2021-04-25] MEDS: LENVATINIB PO SCH (08:32)
[2021-04-25] MEDS: TAMSULOSIN HCL 0.4 MG CAP.ER.24H PO SCH ×2 (08:32→20:46)
[2021-04-25] MEDS: FAMOTIDINE 20MG VIAL IV SCH (08:47)
[2021-04-25] MEDS: ENOXAPARIN SODIUM 30 MG/0.3 ML SQ SCH (08:48)
[2021-04-25] MEDS: ATORVASTATIN 10 MG TABLET PO SCH (20:46)
[2021-04-25] MEDS ORDERED: CLINIMIX-E 5%AA /D15%W 2000ML 2,000 ML IV ONE (22:00)
[2021-04-26 03:51] VITALS: BP 129/71
[2021-04-26] MEDS: TAMSULOSIN HCL 0.4 MG CAP.ER.24H PO SCH ×2 (08:38→21:00)
[2021-04-26] MEDS: LENVATINIB PO SCH (08:38)
[2021-04-26] MEDS: ENOXAPARIN SODIUM 30 MG/0.3 ML SQ SCH (08:47)
[2021-04-26] MEDS: FAMOTIDINE 20MG VIAL IV SCH (08:47)
[2021-04-26 08:57] VITALS: BP 141/75
[2021-04-26 12:04] VITALS: BP 127/69
[2021-04-26 12:50] VITALS: BP 127/69
[2021-04-26 16:59] VITALS: BP 157/75
[2021-04-26] MEDS ORDERED: PHARMACY COMMUNICATION MISC SCH (18:30)
[2021-04-26] MEDS: ONDANSETRON 4MG INJ IV PRN (19:25)
[2021-04-26] MEDS ORDERED: ALTEPLASE 2MG VIAL 2 MG/VIAL VIAL IVCATH ONE (19:30)
[2021-04-26 20:07] VITALS: BP 92/54
[2021-04-26] MEDS: ATORVASTATIN 10 MG TABLET PO SCH (21:00)
[2021-04-26] MEDS ORDERED: PROCALAMINE IV SOLUTION 1,000 ML IV SCH (22:00)
[2021-04-26] MEDS: POTASSIUM CHLORIDE 20MEQ/100ML 100 ML IV PRN (23:12)
[2021-04-27] VITALS (7 sets, daily range): BP systolic 103–142; BP diastolic 59–76
[2021-04-27] MEDS: POTASSIUM CHLORIDE 20MEQ/100ML 100 ML IV PRN (01:27)
[2021-04-27 04:33] LABS: POTASSIUM 4.3 mmol/L (3.5-5.1)
[2021-04-27] MEDS: TAMSULOSIN HCL 0.4 MG CAP.ER.24H PO SCH ×2 (07:47→21:00)
[2021-04-27] MEDS: FAMOTIDINE 20MG VIAL IV SCH (08:35)
[2021-04-27] MEDS: LENVATINIB PO SCH (09:00)
[2021-04-27] MEDS: ENOXAPARIN SODIUM 30 MG/0.3 ML SQ SCH (12:41)
[2021-04-27] MEDS ORDERED: PHARMACY COMMUNICATION MISC SCH (15:00)
[2021-04-27] MEDS ORDERED: CLINIMIX-E4.25%AA/D5+LYT2000ML 2,000 ML IV ONE (16:00)
[2021-04-27] MEDS: ATORVASTATIN 10 MG TABLET PO SCH (21:00)
[2021-04-27 22:48] LABS: INR 2.01 (0.85-1.15); PROTHROMBIN TIME 20.6 SEC (9.6-11.6)
[2021-04-27 22:50] LABS: PARTIAL THROMBOPLASTIN TIME 51.2 SEC (26.3-35.5)
[2021-04-28 04:07] VITALS: BP 135/72
[2021-04-28 04:11] LABS: HEMATOCRIT 35.3 % (42-54); MEAN CORPUSCULAR HGB CONC 33.1 g/dL (32.0-36.0); MEAN CORPUSCULAR VOLUME 93.6 fL (79-99); RED BLOOD CELL COUNT(AUTO) 3.77 MIL/uL (4.50-6.20); RED CELL DISTRIBUTION WIDTH 14.7 % (11.0-15.5); WHITE BLOOD COUNT (AUTO) 5.8 K/uL (4.8-10.8)
[2021-04-28 05:03] LABS: ALBUMIN 2.8 g/dL (3.5-5.0); BILIRUBIN,TOTAL 0.7 mg/dL (0.2-1.0); CREATININE 0.9 mg/dL (0.5-1.5); POTASSIUM 3.7 mmol/L (3.5-5.1); TOTAL PROTEIN, SERUM 6.3 g/dL (6.0-8.3)
[2021-04-28 07:58] VITALS: BP 117/70
[2021-04-28] MEDS: ENOXAPARIN SODIUM 30 MG/0.3 ML SQ SCH (09:00)
[2021-04-28] MEDS: TAMSULOSIN HCL 0.4 MG CAP.ER.24H PO SCH ×2 (09:00→21:00)
[2021-04-28] MEDS: LENVATINIB PO SCH (09:00)
[2021-04-28 10:25] VITALS: BP 102/65
[2021-04-28 13:14] LABS: INR 2.13 (0.85-1.15); PROTHROMBIN TIME 21.7 SEC (9.6-11.6)
[2021-04-28] MEDS: FAMOTIDINE 20MG VIAL IV SCH (13:19)
[2021-04-28] MEDS ORDERED: M.V.I. IV [ADULT] 10 ML in CLINIMIX-E4.25%AA/D5+LYT2000ML 2,000 ML IV ONE (15:00)
[2021-04-28 15:37] VITALS: BP 129/81
[2021-04-28] MEDS ORDERED: PHYTONADIONE 10 MG in 0.9%NACL 50ML 50 ML IVPB SCH (17:56)
[2021-04-28 19:00] VITALS: BP 140/80
[2021-04-28] MEDS ORDERED: PHYTONADIONE 10 MG/1 ML AMP SQ SCH (20:00)
[2021-04-28] MEDS: ATORVASTATIN 10 MG TABLET PO SCH (21:00)
[2021-04-29] VITALS (23 sets, daily range): BP systolic 111–173; BP diastolic 63–95
[2021-04-29 04:15] LABS: HEMATOCRIT 28.7 % (42-54); MEAN CORPUSCULAR HEMOGLOBIN 30.8 pg (27.0-33.0); MEAN CORPUSCULAR HGB CONC 34.1 g/dL (32.0-36.0); MEAN CORPUSCULAR VOLUME 90.3 fL (79-99); RED BLOOD CELL COUNT(AUTO) 3.18 MIL/uL (4.50-6.20); RED CELL DISTRIBUTION WIDTH 14.5 % (11.0-15.5); WHITE BLOOD COUNT (AUTO) 6.2 K/uL (4.8-10.8)
[2021-04-29 04:16] LABS: CREATININE 0.9 mg/dL (0.5-1.5); POTASSIUM 3.5 mmol/L (3.5-5.1)
[2021-04-29 04:19] LABS: INR 1.5 (0.85-1.15); PROTHROMBIN TIME 15.8 SEC (9.6-11.6)
[2021-04-29] MEDS: LENVATINIB PO SCH (09:00)
[2021-04-29] MEDS: TAMSULOSIN HCL 0.4 MG CAP.ER.24H PO SCH ×2 (09:00→21:02)
[2021-04-29] MEDS: ENOXAPARIN SODIUM 30 MG/0.3 ML SQ SCH (09:00)
[2021-04-29] MEDS: FAMOTIDINE 20MG VIAL IV SCH (09:00)
[2021-04-29] MEDS ORDERED: FAT EMULSIONS 20% 250ML 250 ML IV SCH (10:00)
[2021-04-29] MEDS ORDERED: 0.9%NACL 1000ML 1,000 ML IV ONE (10:19)
[2021-04-29] MEDS ORDERED: CEFAZOLIN SODIUM 1 GM VIAL ONE (12:32)
[2021-04-29] MEDS ORDERED: SUCCINYLCHOLINE CHLORIDE 20 MG/ML 10 ML VIAL ONE (12:39)
[2021-04-29] MEDS ORDERED: DEXAMETHASONE SOD PHOSPHATE 10MG/ML 1ML VIAL ONE (12:39)
[2021-04-29] MEDS ORDERED: LIDOCAINE PF 100MG/5ML (2%) SYRINGE 5ML ONE (12:39)
[2021-04-29] MEDS ORDERED: GLYCOPYRROLATE 1 MG/5 ML SYRINGE ONE (12:39)
[2021-04-29] MEDS ORDERED: MIDAZOLAM HCL 1 MG/ML 2ML VIAL ONE (12:39)
[2021-04-29] MEDS ORDERED: ONDANSETRON 4MG INJ ONE (12:39)
[2021-04-29] MEDS ORDERED: FENTANYL CITRATE PF 50 MCG/1 ML 2ML VIAL ONE (12:40)
[2021-04-29] MEDS ORDERED: ROCURONIUM 10MG/1ML SYR 10 MG/ML ML ONE (12:40)
[2021-04-29] MEDS ORDERED: PROPOFOL 10 MG/ML 20ML VIAL IV ONE (12:40)
[2021-04-29] MEDS ORDERED: NEOSTIGMINE 5MG/5ML SYR IV ONE (12:40)
[2021-04-29] MEDS ORDERED: LIDOCAINE HCL 1% MDV 50ML VIAL ONE (12:59)
[2021-04-29] MEDS ORDERED: BUPIVACAINE/PF 0.25% 30ML VIAL IJ ONE (12:59)
[2021-04-29] MEDS ORDERED: HYDROCODONE/ACETAMINOPHEN 5/325 MG TAB GT PRN (16:30)
[2021-04-29] MEDS: ATORVASTATIN 10 MG TABLET PO SCH (21:02)
[2021-04-30] VITALS: BP 124/71
[2021-04-30 04:00] VITALS: BP 136/74
[2021-04-30 04:09] LABS: MEAN CORPUSCULAR VOLUME 93.8 fL (79-99); RED BLOOD CELL COUNT(AUTO) 3.52 MIL/uL (4.50-6.20); RED CELL DISTRIBUTION WIDTH 14.6 % (11.0-15.5); WHITE BLOOD COUNT (AUTO) 6.1 K/uL (4.8-10.8)
[2021-04-30 04:12] LABS: CREATININE 1.1 mg/dL (0.5-1.5); POTASSIUM 4.2 mmol/L (3.5-5.1)
[2021-04-30 07:41] VITALS: BP 138/80
[2021-04-30] MEDS: LENVATINIB PO SCH (09:00)
[2021-04-30] MEDS: TAMSULOSIN HCL 0.4 MG CAP.ER.24H PO SCH (09:22)
[2021-04-30] MEDS: FAMOTIDINE 20MG VIAL IV SCH (09:22)
[2021-04-30] MEDS: ENOXAPARIN SODIUM 30 MG/0.3 ML SQ SCH (09:23)
[2021-04-30 10:41] VITALS: BP 147/73
[2021-04-30 15:16] VITALS: BP 135/72
== END 2021-04-30 19:15 | DRG 543 ==
LOC: EDH 17:26 → EDHIP 19:01 → OBSVTOIN 19:01 → 4CH 04-18 03:47
PROVIDERS: ADMIT Internal Medicine; ATTEND Internal Medicine
PROC: 0DJ08ZZ Inspection of Upper Intestinal Tract, Via Natural or Artificial Opening Endoscopic (ICD-10-PCS; 2021-04-23)
PROC: 30233K1 Transfusion of Nonautologous Frozen Plasma into Peripheral Vein, Percutaneous Approach (ICD-10-PCS; 2021-04-28)
PROC: 0DH60UZ Insertion of Feeding Device into Stomach, Open Approach (ICD-10-PCS; principal; 2021-04-29 13:06)
DX: C79.51 Secondary malignant neoplasm of bone (principal); C78.7 Secondary malignant neoplasm of liver and intrahepatic bile duct; C78.01 Secondary malignant neoplasm of right lung; C78.02 Secondary malignant neoplasm of left lung; E44.0 Moderate protein-calorie malnutrition; R64 Cachexia; R13.12 Dysphagia, oropharyngeal phase; E86.0 Dehydration; E83.42 Hypomagnesemia; E87.6 Hypokalemia; I10 Essential (primary) hypertension; E78.5 Hyperlipidemia, unspecified; Z20.822 Contact with and (suspected) exposure to COVID-19; N40.0 Benign prostatic hyperplasia without lower urinary tract symptoms; E78.00 Pure hypercholesterolemia, unspecified; E11.9 Type 2 diabetes mellitus without complications; Z60.2 Problems related to living alone; R62.7 Adult failure to thrive; R53.81 Other malaise; R63.30 Feeding difficulties, unspecified; D69.6 Thrombocytopenia, unspecified; Z68.23 Body mass index [BMI] 23.0-23.9, adult; Z91.041 Radiographic dye allergy status; Z79.84 Long term (current) use of oral hypoglycemic drugs; Z79.899 Other long term (current) drug therapy; Z92.3 Personal history of irradiation; Z92.21 Personal history of antineoplastic chemotherapy; Z87.891 Personal history of nicotine dependence; Z85.89 Personal history of malignant neoplasm of other organs and systems; Z85.818 Personal history of malignant neoplasm of other sites of lip, oral cavity, and pharynx; Z86.73 Personal history of transient ischemic attack (TIA), and cerebral infarction without residual deficits; Z83.3 Family history of diabetes mellitus; Z80.3 Family history of malignant neoplasm of breast
CPT/HCPCS: 36415; 36430; 43235; 70450; 70490; 71045; 71250; 74230; 80048; 80053; 81003; 82550; 82948; 83690; 83735; 84100; 84132; 84425; 84484; 85025; 85027; 85610; 85730; 86850; 86900; 86901; 86927; 87635; 92610; 92611; 97039; A4606; G0378; J0330; J0690; J1100; J1650; J2001; J2250; J2270; J2405; J2704; J2710; J2997; J3010; J3430; J3475; J3480; J3490; J7030; J7042; J7070; P9017

== ENCOUNTER 2021-06-09 22:31 | Inpatient (IN) | payer MEDICARE ==
[~2021-06-09] VITALS: Ht 180.3 cm; Wt 74.0 kg
[~2021-06-09 22:31] MED LIST changes: -AMLO5TAB5 PO; +ESOM40CA54 PO; -HYDR-4068 PO; +IBUP-2077 PO; -ONDA4TAB4 PO; -PANT40TA PO; +PROC10TA13 PO
[2021-06-09] MEDS ORDERED: PROMETHAZINE HCL 25 MG/ML 1ML AMPULE IM ONE (23:00)
[2021-06-09 23:16] LABS: BASOPHILS % (AUTO) 0.1 % (0.0-5.0); EOSINOPHILS % (AUTO) 0.4 % (0.0-8.0); HEMATOCRIT 35.8 % (42-54); LYMPHOCYTES % (AUTO) 9.6 % (21.0-51.0); MEAN CORPUSCULAR HEMOGLOBIN 32.6 pg (27.0-33.0); MEAN CORPUSCULAR HGB CONC 34.9 g/dL (32.0-36.0); MEAN CORPUSCULAR VOLUME 93.5 fL (79-99); MONOCYTES % (AUTO) 5.2 % (3.0-13.0); NEUTROPHILS % (AUTO) 84.5 % (40.0-77.0); PLATELET COUNT (AUTO) 79 K/uL (130-400); RED BLOOD CELL COUNT(AUTO) 3.83 MIL/uL (4.50-6.20); RED CELL DISTRIBUTION WIDTH 16.4 % (11.0-15.5); WHITE BLOOD COUNT (AUTO) 8.3 K/uL (4.8-10.8)
[2021-06-09 23:24] LABS: CREATININE 1.1 mg/dL (0.5-1.5); POTASSIUM 4.5 mmol/L (3.5-5.1)
[2021-06-09 23:27] LABS: ALBUMIN 3.3 g/dL (3.5-5.0); BILIRUBIN,TOTAL 0.6 mg/dL (0.2-1.0); TOTAL PROTEIN, SERUM 6.5 g/dL (6.0-8.3)
[2021-06-10] MEDS ORDERED: DiphenhydrAMINE HCL 50 MG/ML VIAL ONE (00:24)
[2021-06-10] MEDS ORDERED: PANTOPRAZOLE 40 MG/VIAL IVP ONE (00:30)
[2021-06-10] MEDS ORDERED: FAMOTIDINE 20MG VIAL IV ONE (00:30)
[2021-06-10] MEDS ORDERED: DiphenhydrAMINE HCL 50 MG/ML VIAL IV ONE (00:30)
[2021-06-10] MEDS ORDERED: METOCLOPRAMIDE 10 MG/2 ML VIAL IVP ONE (01:00)
[2021-06-10] MEDS: LACTATED RINGERS 1000ML 1,000 ML IV SCH ×2 (01:37→08:19)
[2021-06-10] MEDS ORDERED: LORAZEPAM 2 MG/ML 1 ML VIAL ONE (02:39)
[2021-06-10] MEDS ORDERED: HYDRALAZINE 20MG/ML VIAL IV PRN (03:00)
[2021-06-10] MEDS ORDERED: LORAZEPAM 2 MG/ML 1 ML VIAL IVP ONE (03:00)
[2021-06-10] MEDS: METOCLOPRAMIDE 10 MG/2 ML VIAL IVP SCH ×2 (08:21→13:44)
[2021-06-10] MEDS: 0.9%NACL 1000ML 1,000 ML IV SCH ×2 (09:09→13:12)
[2021-06-10 09:21] LABS: HEMATOCRIT 36.1 % (42-54); MEAN CORPUSCULAR HEMOGLOBIN 32.7 pg (27.0-33.0); MEAN CORPUSCULAR HGB CONC 34.9 g/dL (32.0-36.0); MEAN CORPUSCULAR VOLUME 93.8 fL (79-99); RED BLOOD CELL COUNT(AUTO) 3.85 MIL/uL (4.50-6.20); RED CELL DISTRIBUTION WIDTH 16.7 % (11.0-15.5); WHITE BLOOD COUNT (AUTO) 8.3 K/uL (4.8-10.8)
[2021-06-10 09:39] LABS: ALBUMIN 3.2 g/dL (3.5-5.0); BILIRUBIN,TOTAL 0.6 mg/dL (0.2-1.0); CREATININE 0.9 mg/dL (0.5-1.5); TOTAL PROTEIN, SERUM 6.1 g/dL (6.0-8.3)
[2021-06-10] MEDS ORDERED: NITR0.4T50 SL (14:39)
[2021-06-10] MEDS ORDERED: LOPE2CAP PO (14:39)
[2021-06-10] MEDS ORDERED: BISA10SU11 RC (14:39)
[2021-06-10] MEDS ORDERED: LACT10SO5 PO (14:39)
[2021-06-10] MEDS ORDERED: CHLO25TA23 PO (14:39)
[2021-06-10] MEDS ORDERED: MUPI22OI2 TP (14:39)
[2021-06-10] MEDS ORDERED: ACET-2247 PO (14:39)
[2021-06-10] MEDS ORDERED: ONDA4VIA22 IJ (14:39)
[2021-06-10] MEDS ORDERED: FAMO-136 PO (14:39)
[2021-06-10] MEDS ORDERED: SANTO TP (14:39)
[2021-06-10] MEDS ORDERED: IPRA3AMP24 IH (14:39)
[2021-06-10] MEDS ORDERED: GUAI-1447 PO (14:39)
[2021-06-10] MEDS ORDERED: MULT-1203 PO (14:39)
[2021-06-10] MEDS ORDERED: LENV4CAP PO (14:39)
[2021-06-11 00:40] VITALS: BP 120/84
[2021-06-11] MEDS: 0.9%NACL 1000ML 1,000 ML IV SCH (01:40)
[2021-06-11 04:00] VITALS: BP 148/86
[2021-06-11 06:00] LABS: BASOPHILS % (AUTO) 0.3 % (0.0-5.0); EOSINOPHILS % (AUTO) 4.1 % (0.0-8.0); HEMATOCRIT 35.7 % (42-54); LYMPHOCYTES % (AUTO) 14.8 % (21.0-51.0); MEAN CORPUSCULAR HEMOGLOBIN 32.9 pg (27.0-33.0); MEAN CORPUSCULAR HGB CONC 34.5 g/dL (32.0-36.0); MEAN CORPUSCULAR VOLUME 95.5 fL (79-99); MONOCYTES % (AUTO) 7.1 % (3.0-13.0); NEUTROPHILS % (AUTO) 73.3 % (40.0-77.0); PLATELET COUNT (AUTO) 87 K/uL (130-400); RED BLOOD CELL COUNT(AUTO) 3.74 MIL/uL (4.50-6.20); WHITE BLOOD COUNT (AUTO) 7.8 K/uL (4.8-10.8)
[2021-06-11] MEDS ORDERED: DEXTROSE 50%-WATER 50 ML DISP.SYRIN IV ONE (06:12)
[2021-06-11 06:15] LABS: ALBUMIN 2.8 g/dL (3.5-5.0); BILIRUBIN,TOTAL 0.6 mg/dL (0.2-1.0); CREATININE 0.8 mg/dL (0.5-1.5); MAGNESIUM 1.8 mg/dL (1.80-2.40); POTASSIUM 3.7 mmol/L (3.5-5.1); TOTAL PROTEIN, SERUM 5.5 g/dL (6.0-8.3)
[2021-06-11] MEDS ORDERED: DEXTROSE 50%-WATER 50 ML DISP.SYRIN IV PRN (06:30)
[2021-06-11] MEDS ORDERED: GLUCAGON 1MG KIT 1 MG ML IM PRN (06:30)
[2021-06-11 08:00] VITALS: BP 156/83
[2021-06-11] MEDS: PANTOPRAZOLE 40 MG/VIAL IVP SCH (10:19)
[2021-06-11] MEDS: DEXTROSE 5%-LACTATED RINGERS 1,000 ML IV SCH ×2 (11:33→20:52)
[2021-06-11 12:00] VITALS: BP 162/83
[2021-06-11 16:00] VITALS: BP 154/82
[2021-06-11 19:00] VITALS: BP 166/83
[2021-06-12] VITALS (7 sets, daily range): BP systolic 114–158; BP diastolic 74–83
[2021-06-12 03:56] LABS: APPEARANCE,URINE Clear (CLEAR); BILIRUBIN,URINE Negative (NEGATIVE); COLOR,URINE Yellow (YELLOW); GLUCOSE, URINE (UA) Negative (NEGATIVE); KETONES,URINE Trace mg/dL (NEGATIVE); LEUKOCYTE ESTERASE ,URINE Negative (NEGATIVE); NITRATE,URINE Negative (NEGATIVE); OCCULT BLOOD,URINE Negative (NEGATIVE); PROTEIN,URINE POS 2+ mg/dL (NEGATIVE)
[2021-06-12 04:02] LABS: BACTERIA,URINE None Seen /HPF (None Seen); MUCUS,URINE Rare LPF (None Seen); RBC,URINE None Seen /HPF (0-1); SQUAMOUS EPITHELIAL CELL,UR Few /HPF (0-2); WBC,URINE None Seen /HPF (0-1)
[2021-06-12] MEDS: PANTOPRAZOLE 40 MG/VIAL IVP SCH (09:00)
[2021-06-12] MEDS: DEXTROSE 5%-LACTATED RINGERS 1,000 ML IV SCH (11:10)
[2021-06-12] MEDS: ONDANSETRON 4MG INJ IV PRN (22:35)
[2021-06-13] VITALS (7 sets, daily range): BP systolic 114–179; BP diastolic 70–82
[2021-06-13] MEDS: DEXTROSE 5%-LACTATED RINGERS 1,000 ML IV SCH ×3 (00:31→22:53)
[2021-06-13 05:05] LABS: HEMATOCRIT 37.1 % (42-54); MEAN CORPUSCULAR HEMOGLOBIN 32.8 pg (27.0-33.0); MEAN CORPUSCULAR HGB CONC 34.2 g/dL (32.0-36.0); MEAN CORPUSCULAR VOLUME 95.9 fL (79-99); RED BLOOD CELL COUNT(AUTO) 3.87 MIL/uL (4.50-6.20); RED CELL DISTRIBUTION WIDTH 16.8 % (11.0-15.5); WHITE BLOOD COUNT (AUTO) 5.5 K/uL (4.8-10.8)
[2021-06-13 05:22] LABS: ALBUMIN 2.6 g/dL (3.5-5.0); BILIRUBIN,TOTAL 0.6 mg/dL (0.2-1.0); CREATININE 0.8 mg/dL (0.5-1.5); POTASSIUM 3.1 mmol/L (3.5-5.1); TOTAL PROTEIN, SERUM 5.4 g/dL (6.0-8.3)
[2021-06-13] MEDS: POTASSIUM CHLORIDE 20MEQ/100ML 100 ML IV PRN ×2 (06:10→11:28)
[2021-06-13] MEDS: LIDOCAINE HCL-MPF 1% 2ML VIAL IV PRN ×2 (06:10→11:28)
[2021-06-13] MEDS ORDERED: BISACODYL 10 MG SUPP.RECT RC PRN (10:30)
[2021-06-13] MEDS ORDERED: GUAIFENESIN SUGAR-FREE 100 MG/5 ML UDCUP PO PRN (10:30)
[2021-06-13] MEDS: PANTOPRAZOLE 40 MG/VIAL IVP SCH (11:27)
[2021-06-13] MEDS: ONDANSETRON 4MG INJ IV PRN (14:36)
[2021-06-13] MEDS: TAMSULOSIN HCL 0.4 MG CAP.ER.24H PO SCH (21:29)
[2021-06-13] MEDS: ATORVASTATIN 10 MG TABLET PO SCH (21:29)
[2021-06-14 03:45] VITALS: BP 127/69
[2021-06-14 04:24] LABS: BASOPHILS % (AUTO) 0.2 % (0.0-5.0); EOSINOPHILS % (AUTO) 9.3 % (0.0-8.0); HEMATOCRIT 35.7 % (42-54); LYMPHOCYTES % (AUTO) 20.3 % (21.0-51.0); MEAN CORPUSCULAR HGB CONC 33.6 g/dL (32.0-36.0); MEAN CORPUSCULAR VOLUME 98.1 fL (79-99); MONOCYTES % (AUTO) 5.8 % (3.0-13.0); NEUTROPHILS % (AUTO) 64.2 % (40.0-77.0); PLATELET COUNT (AUTO) 89 K/uL (130-400); RED BLOOD CELL COUNT(AUTO) 3.64 MIL/uL (4.50-6.20); RED CELL DISTRIBUTION WIDTH 16.6 % (11.0-15.5); WHITE BLOOD COUNT (AUTO) 6.4 K/uL (4.8-10.8)
[2021-06-14 04:47] LABS: ALBUMIN 2.3 g/dL (3.5-5.0); BILIRUBIN,TOTAL 0.5 mg/dL (0.2-1.0); CREATININE 0.8 mg/dL (0.5-1.5); MAGNESIUM 1.9 mg/dL (1.80-2.40); POTASSIUM 3.7 mmol/L (3.5-5.1); TOTAL PROTEIN, SERUM 4.9 g/dL (6.0-8.3)
[2021-06-14] MEDS: METOCLOPRAMIDE 10 MG/2 ML VIAL IVP SCH ×3 (06:42→18:40)
[2021-06-14 07:40] VITALS: BP 122/68
[2021-06-14] MEDS: LENVATINIB PO SCH (09:00)
[2021-06-14] MEDS: TAMSULOSIN HCL 0.4 MG CAP.ER.24H PO SCH ×2 (10:04→21:04)
[2021-06-14] MEDS: PANTOPRAZOLE 40 MG/VIAL IVP SCH (10:05)
[2021-06-14] MEDS: ASCORBIC ACID 500 MG TAB PO SCH (10:05)
[2021-06-14] MEDS: MULTIVITAMIN TABLET PO SCH (10:05)
[2021-06-14 11:40] VITALS: BP 132/73
[2021-06-14 15:35] VITALS: BP 133/70
[2021-06-14] MEDS: DEXTROSE 5%-LACTATED RINGERS 1,000 ML IV SCH (18:24)
[2021-06-14] MEDS: ONDANSETRON 4MG INJ IV PRN (19:15)
[2021-06-14 20:14] VITALS: BP 136/71
[2021-06-14] MEDS: ATORVASTATIN 10 MG TABLET PO SCH (21:04)
[2021-06-14 23:54] VITALS: BP 126/68
[2021-06-15 04:06] VITALS: BP 121/67
[2021-06-15] MEDS: DEXTROSE 5%-LACTATED RINGERS 1,000 ML IV SCH ×2 (07:39→10:18)
[2021-06-15 07:53] VITALS: BP 141/72
[2021-06-15] MEDS: LENVATINIB PO SCH (09:00)
[2021-06-15] MEDS: PANTOPRAZOLE 40 MG/VIAL IVP SCH (10:17)
[2021-06-15] MEDS: TAMSULOSIN HCL 0.4 MG CAP.ER.24H PO SCH ×2 (10:18→20:59)
[2021-06-15] MEDS: MULTIVITAMIN TABLET PO SCH (10:18)
[2021-06-15] MEDS: METOCLOPRAMIDE 10 MG/2 ML VIAL IVP SCH ×3 (10:18→18:03)
[2021-06-15] MEDS: ASCORBIC ACID 500 MG TAB PO SCH (10:18)
[2021-06-15 10:45] VITALS: BP 126/73
[2021-06-15 16:05] VITALS: BP 140/91
[2021-06-15 20:00] VITALS: BP 121/83
[2021-06-15] MEDS: ATORVASTATIN 10 MG TABLET PO SCH (20:59)
[2021-06-16] VITALS (14 sets, daily range): BP systolic 106–163; BP diastolic 50–96
[2021-06-16] MEDS: METOCLOPRAMIDE 10 MG/2 ML VIAL IVP SCH ×3 (06:38→17:54)
[2021-06-16] MEDS: LENVATINIB PO SCH (09:00)
[2021-06-16] MEDS: MULTIVITAMIN TABLET PO SCH (09:40)
[2021-06-16] MEDS: TAMSULOSIN HCL 0.4 MG CAP.ER.24H PO SCH ×2 (09:40→22:46)
[2021-06-16] MEDS: PANTOPRAZOLE 40 MG/VIAL IVP SCH (09:40)
[2021-06-16] MEDS: ASCORBIC ACID 500 MG TAB PO SCH (09:41)
[2021-06-16] MEDS: ATORVASTATIN 10 MG TABLET PO SCH (22:46)
[2021-06-17] VITALS: BP 174/82
[2021-06-17 04:00] VITALS: BP 126/67
[2021-06-17 06:31] LABS: HEMATOCRIT 30.7 % (42-54); MEAN CORPUSCULAR HEMOGLOBIN 32.5 pg (27.0-33.0); MEAN CORPUSCULAR HGB CONC 33.2 g/dL (32.0-36.0); MEAN CORPUSCULAR VOLUME 97.8 fL (79-99); RED BLOOD CELL COUNT(AUTO) 3.14 MIL/uL (4.50-6.20); RED CELL DISTRIBUTION WIDTH 16.3 % (11.0-15.5)
[2021-06-17 06:43] LABS: CREATININE 0.8 mg/dL (0.5-1.5); POTASSIUM 3.5 mmol/L (3.5-5.1)
[2021-06-17 07:15] VITALS: BP 109/70
[2021-06-17] MEDS: METOCLOPRAMIDE 10 MG/2 ML VIAL IVP SCH ×2 (08:09→12:39)
[2021-06-17] MEDS: PANTOPRAZOLE 40 MG/VIAL IVP SCH (08:49)
[2021-06-17] MEDS: ASCORBIC ACID 500 MG TAB PO SCH (08:50)
[2021-06-17] MEDS: MULTIVITAMIN TABLET PO SCH (08:50)
[2021-06-17] MEDS: LENVATINIB PO SCH (08:50)
[2021-06-17] MEDS: TAMSULOSIN HCL 0.4 MG CAP.ER.24H PO SCH (08:50)
[2021-06-17 11:15] VITALS: BP 98/64
== END 2021-06-17 15:10 | disposition hospice, home (50) | DRG 389 ==
LOC: EDH 22:31 → EDHIP 06-10 01:07 → OBSVTOIN 06-10 01:07 → 3BH 06-10 23:09
PROVIDERS: ADMIT Internal Medicine Critical Care Medicine; ATTEND Internal Medicine Critical Care Medicine
DX: K56.609 Unspecified intestinal obstruction, unspecified as to partial versus complete obstruction (principal); E87.1 Hypo-osmolality and hyponatremia; E44.0 Moderate protein-calorie malnutrition; C78.7 Secondary malignant neoplasm of liver and intrahepatic bile duct; R64 Cachexia; E78.00 Pure hypercholesterolemia, unspecified; E11.649 Type 2 diabetes mellitus with hypoglycemia without coma; D69.6 Thrombocytopenia, unspecified; R53.81 Other malaise; R13.10 Dysphagia, unspecified; I10 Essential (primary) hypertension; N40.0 Benign prostatic hyperplasia without lower urinary tract symptoms; Z20.822 Contact with and (suspected) exposure to COVID-19; K21.9 Gastro-esophageal reflux disease without esophagitis; R62.7 Adult failure to thrive; Z68.22 Body mass index [BMI] 22.0-22.9, adult; Z74.01 Bed confinement status; Z91.041 Radiographic dye allergy status; Z79.84 Long term (current) use of oral hypoglycemic drugs; Z79.899 Other long term (current) drug therapy; Z85.818 Personal history of malignant neoplasm of other sites of lip, oral cavity, and pharynx; Z93.1 Gastrostomy status; Z92.3 Personal history of irradiation; Z86.73 Personal history of transient ischemic attack (TIA), and cerebral infarction without residual deficits; Z83.3 Family history of diabetes mellitus
CPT/HCPCS: 36415; 71045; 74018; 74176; 74230; 80048; 80053; 81001; 82948; 83605; 83690; 83735; 84145; 84484; 85025; 85027; 86140; 87635; 87804; 92611; 93005; 97039; C9113; C9803; G0378; J1200; J2060; J2405; J2765; J3480; J3490; J7030; J7070; J7120; Q0161